=== PATIENT | female | born 1985 | race Caucasian/White ===

== ENCOUNTER 2024-06-17 13:13 | Emergency (ER) | payer OTHER ==
[~2024-06-17] VITALS: Ht 162.6 cm; Wt 54.5 kg
[~2024-06-17 13:13] MED LIST: BCP TD; LEXAPRO 10MG10 MG PO
[2024-06-17] MEDS ORDERED: NS 1,000 ML IV ONE (13:45)
[2024-06-17] MEDS ORDERED: fentaNYL 50 MCG/ML 2 ML VIAL IV ONE (13:45)
[2024-06-17 13:54] LABS: BASO # 0.1 K/mm3 (0.0-0.2); BASO % 0.5 % (0.0-2.0); EOS # 0.1 K/mm3 (0.0-0.7); EOS % 0.7 % (0.0-4.0); HEMATOCRIT 43.5 % (37.0-47.0); HEMOGLOBIN 15.5 g/dl (12.5-16.0); LYMPH # 4.6 K/mm3 (1.2-3.4); LYMPH % 31.1 % (20.0-51.0); MEAN CELL VOLUME 88 fl (80.0-100.0); MEAN CORPUSCULAR HEMOGLOBIN 31 pg (27-31); MEAN CORPUSCULAR HGB CONC 36 g/dl (33.0-37.0); MEAN PLATELET VOLUME 10.4 fl (7.4-10.4); MONO % 6.4 % (1.7-9.3); PLATELET COUNT 265 K/mm3 (130-400); RED BLOOD COUNT 4.96 M/mm3 (4.10-5.30); REDCELL DISTRIBUTION WIDTH-CV 12.8 % (11.5-14.5)
[2024-06-17] MEDS ORDERED: NS 100 ML IV SCH (13:54)
[2024-06-17] MEDS ORDERED: Iohexol 300 - 100 ML VIAL IV ONE (13:54)
[2024-06-17 14:06] LABS: ALBUMIN 3.7 g/dL (3.5-5.0); BILIRUBIN,TOTAL 0.5 mg/dL (0.2-1.2); CALCIUM 9.6 mg/dL (8.4-10.2); CREATININE, serum 0.98 mg/dL (0.57-1.11); POTASSIUM 3.1 mEq/L (3.5-4.5); TOTAL PROTEIN 6.7 g/dl (6.2-8.1)
[2024-06-17] MEDS ORDERED: Heparin/D5W 250 ML IV SCH (14:15)
[2024-06-17] MEDS ORDERED: Heparin 5,000 UNITS/ML 1 ML VIAL IV PRN (14:15)
[2024-06-17] MEDS ORDERED: Tenecteplase 50 MG/10 ML VIAL (after reconstitution) IV ONE (14:15)
[2024-06-17] MEDS ORDERED: Heparin 5,000 UNITS/ML 1 ML VIAL IV ONE (14:15)
[2024-06-17] MEDS ORDERED: Clopidogrel 300 MG DOSE (75 mg x 4 tabs) PO ONE (14:15)
[2024-06-17 14:26] LABS: THYROID STIMULATING HORMONE 3.979 uIU/mL (0.350-4.940)
[2024-06-17 14:30] VITALS: BP 103/79
[2024-06-17 14:45] VITALS: PULSE 72
[2024-06-17 15:16] LABS: TROPONIN-I 0.453 ng/mL (0.00-0.033)
== END 2024-06-17 14:45 | disposition short-term general hospital (02) ==
LOC: COL.ER 13:13
PROVIDERS: Family Medicine
DX: I21.3 ST elevation (STEMI) myocardial infarction of unspecified site (principal)
CPT/HCPCS: J1644; J3010; J3101; J7030; Q9967